=== PATIENT | male | born 1965 | race American Indian/Alaskan Native ===

== ENCOUNTER 2020-09-30 15:55 | Emergency (ER) | payer MEDICARE ==
[2020-09-30 16:11] VITALS: BP 177/104
--- NOTE | 2020-09-30 16:14 | Event Note ---
ED Screening Note Date of service: 09/30/20 Time: 16:13 ED Screening Note: Patient complains of diffuse chest pain shortness of breath after dropping a weight bar on his chest yesterday This initial assessment/diagnostic orders/clinical plan/treatment(s) is/are subject to change based on patients health status, clinical progression and re- assessment by fellow clinical providers in the ED. Further treatment and workup at subsequent clinical providers discretion. Patient/guardian urged not to elope from the ED as their condition may be serious if not clinically assessed and managed. Initial orders include: labs CT chest ekg
[2020-09-30 17:26] LABS: Basophils # (Auto) 0.1 K/mm3 (0.0-0.1); Eosinophils # (Auto) 0.1 K/mm3 (0.0-0.4); Eosinophils % (Auto) 1.2 % (0.0-4.3); Hematocrit 38.3 % (35.5-45.6); Hemoglobin 13.2 gm/dl (11.8-15.2); Lymphocytes # (Auto) 1.8 K/mm3 (1.2-5.4); Lymphocytes % (Auto) 32.9 % (13.4-35.0); Mean Corpuscular HGB Conc 35 % (32-34); Mean Corpuscular Volume 103 fl (84-94); Monocytes # (Auto) 0.6 K/mm3 (0.0-0.8); Monocytes % (Auto) 10.5 % (0.0-7.3); Platelet Count 266 K/mm3 (140-440); Red Blood Count 3.73 M/mm3 (3.65-5.03); Red Cell Distribution Width 14.1 % (13.2-15.2)
[2020-09-30 17:41] LABS: Alanine Aminotransferase 15 units/L (7-56); Albumin 4.4 g/dL (3.9-5); BUN/Creatinine Ratio 13; Blood Urea Nitrogen 21 mg/dL (9-20); Calcium 10.4 mg/dL (8.4-10.2); Hemolysis Index 5
--- NOTE | 2020-09-30 19:31 | Cat Scan Report ---
CT chest w con HISTORY: pain after dropping weight bar on chesr COMPARISON: None TECHNIQUE: Chest CT exam. All CT scans at this location are performed using CT dose reduction for ALA RA by means of automated exposure control. FINDINGS: CT CHEST: Lungs: No significant abnormality. Trachea and Bronchi: No significant abnormality. Mediastinum/Lymph nodes: No lymphadenopathy. Heart: No significant abnormality. Vasculature: No significant abnormality. Osseous Structures: No aggressive appearing osseous lesions. Additional Findings: Bilateral simple appearing renal cysts. IMPRESSION: 1. No acute traumatic abnormality. Signer Name: Antonio Rivas MD Signed: 09/30/2020 7:27 PM Workstation Name: [id number]
[2020-09-30] MEDS ORDERED: SODIUM CHLORIDE 0.9% 1000 ML 1,000 ML IV ONE (20:14)
--- NOTE | 2020-09-30 20:32 | Emergency Department Report ---
ED General Adult HPI - General Chief complaint: Chest Pain Stated complaint: BACK PAIN Time Seen by Provider: 09/30/20 16:12 Source: patient, EMS Mode of arrival: Ambulatory Limitations: No Limitations - History of Present Illness Initial comments: Patient is a 55 y/o male with hxo of HIV positive, GERD, CVA, depression, history of TB, & TIA patient presents for right anterior chest wall pain status post weight lifting incident on yesterday. Patient states intermittent shortness of breath there is no cough, fever, nausea vomiting, dizziness, or lig htheadedness. Symptoms are exacerbated by palpation and movement. Symptoms are relieved by nothing tried. Patient states adherence to all medication regimens. Patient states pain is 4/10 reproducible. There are no obvious abrasions lacerations there is no bleeding there is no chest wall deformity. PT labs and CT chest ordered in triage will evaluate same and dispel appropriately. Severity scale (0 -10): 9 - Related Data Home Medications Medication Instructions Recorded Confirmed Last Taken Ritonavir [Norvir] 1 tab PO DAILY 11/21/15 12/15/15 11/21/15 Truvada 200 mg PO DAILY 11/21/15 11/21/15 Aspirin [Adult Low Dose Aspirin EC] 81 mg PO DAILY 12/15/15 12/15/15 Unknown Atazanavir Sulfate [Reyataz] 300 mg PO QDAY 12/15/15 12/15/15 Unknown Metoprolol [Lopressor TAB] 25 mg PO DAILY 12/15/15 12/15/15 Unknown Previous Rx's Medication Instructions Recorded Last Taken Type Ibuprofen [Motrin 800 MG tab] 800 mg PO Q8HR PRN #30 tablet 11/21/15 Unknown Rx traMADoL [Ultram] 50 mg PO Q4HR PRN #20 tablet 11/21/15 Unknown Rx oxyCODONE /ACETAMINOPHEN [Percocet 1 tab PO Q6H PRN #20 tablet 12/15/15 Unknown Rx 5/325 mg] Famotidine [Pepcid] 20 mg PO BID #30 tablet 01/26/16 Unknown Rx Ketorolac [Toradol] 10 mg PO Q6H PRN #12 tablet 02/17/19 Unknown Rx Acetaminophen/Codeine [Tylenol 1 tab PO Q8H PRN #9 tab 09/30/20 Unknown Rx /Codeine # 3 tab] Allergies Allergy/AdvReac Type Severity Reaction Status Date / Time No Known Allergies Allergy Verified 12/15/15 15:18 ED Review of Systems ROS: Stated complaint: BACK PAIN Other details as noted in HPI Constitutional: denies: chills, fever Eyes: denies: eye pain, eye discharge, vision change ENT: denies: ear pain, throat pain Respiratory: shortness of breath Cardiovascular: chest pain (right anterior lateral chest wall pain ) Endocrine: no symptoms reported Gastrointestinal: denies: abdominal pain, nausea, vomiting, diarrhea Genitourinary: denies: urgency, dysuria, frequency, hematuria Musculoskeletal: denies: back pain, joint swelling, arthralgia Skin: denies: rash, lesions Neurological: denies: headache, weakness, paresthesias Psychiatric: denies: anxiety, depression Hematological/Lymphatic: denies: easy bleeding, easy bruising ED Past Medical Hx - Past Medical History Previous Medical History?: Yes Hx CVA: Yes Hx GERD: Yes Hx Psychiatric Treatment: Yes (bipolar) Hx Tuberculosis: Yes Hx HIV: Yes Additional medical history: TIA,elevated cholesterol. ARTIFICIAL RIGHT EYE - Surgical History Past Surgical History?: Yes Additional Surgical History: RIGHT EYE SURGERY. LEFT HIP REPLACEMENT, RIGHT HIP REPLACEMENT - Social History Smoking Status: Unknown if ever smoked Substance Use Type: Alcohol - Medications Home Medications: Home Medications Medication Instructions Recorded Confirmed Last Taken Type Ibuprofen [Motrin 800 MG tab] 800 mg PO Q8HR PRN #30 tablet 11/21/15 12/15/15 Unknown Rx Ritonavir [Norvir] 1 tab PO DAILY 11/21/15 12/15/15 11/21/15 History Truvada 200 mg PO DAILY 11/21/15 11/21/15 History traMADoL [Ultram] 50 mg PO Q4HR PRN #20 tablet 11/21/15 12/15/15 Unknown Rx Aspirin [Adult Low Dose Aspirin EC] 81 mg PO DAILY 12/15/15 12/15/15 Unknown History Atazanavir Sulfate [Reyataz] 300 mg PO QDAY 12/15/15 12/15/15 Unknown History Metoprolol [Lopressor TAB] 25 mg PO DAILY 12/15/15 12/15/15 Unknown History oxyCODONE /ACETAMINOPHEN [Percocet 1 tab PO Q6H PRN #20 tablet 12/15/15 Unknown Rx 5/325 mg] Famotidine [Pepcid] 20 mg PO BID #30 tablet 01/26/16 Unknown Rx Ketorolac [Toradol] 10 mg PO Q6H PRN #12 tablet 02/17/19 Unknown Rx Acetaminophen/Codeine [Tylenol 1 tab PO Q8H PRN #9 tab 09/30/20 Unknown Rx /Codeine # 3 tab] ED Physical Exam - General Limitations: No Limitations General appearance: alert, in no apparent distress - Head Head exam: Present: atraumatic, normocephalic - Eye Eye exam: Present: normal appearance, EOMI Pupils: Present: normal accommodation - ENT ENT exam: Present: normal exam, mucous membranes moist - Neck Neck exam: Present: normal inspection, full ROM. Absent: tenderness - Respiratory Respiratory exam: Present: normal lung sounds bilaterally, chest wall tenderness (right anterior lateral chest wall tenderness no bruising, no ecchymosis, no crepitus, no stepoff, no flail chest, lungs clear bilat , resp even nonlabored ). Absent: respiratory distress, wheezes, rales, rhonchi, stridor, accessory muscle use, prolonged expiratory - Cardiovascular Cardiovascular Exam: Present: regular rate, normal rhythm, normal heart sounds. Absent: systolic murmur, diastolic murmur, rubs, gallop - GI/Abdominal GI/Abdominal exam: Present: soft, normal bowel sounds. Absent: distended, tenderness, guarding, rebound, rigid, bruit, hernia - Rectal Rectal exam: Present: deferred - Extremities Exam Extremities exam: Present: normal inspection, full ROM, normal capillary refill. Absent: tenderness, pedal edema - Back Exam Back exam: Present: normal inspection, full ROM. Absent: tenderness, CVA tenderness (R), CVA tenderness (L) - Neurological Exam Neurological exam: Present: alert, oriented X3, CN II-XII intact, normal gait - Psychiatric Psychiatric exam: Present: normal affect, normal mood - Skin Skin exam: Present: warm, dry, intact, normal color. Absent: rash ED Course Vital Signs 09/30/20 16:07 Temperature 98.1 F Pulse Rate 90 Respiratory 18 Rate Blood Pressure 177/104 [Right] O2 Sat by Pulse 100 Oximetry ED Medical Decision Making - Lab Data Result diagrams: 09/30/20 16:46 09/30/20 16:46 - EKG Data EKG shows normal: sinus rhythm, axis, intervals, QRS complexes, ST-T waves Rate: normal - EKG Data When compared to previous EKG there are: no significant change Interpretation: normal EKG (EKG NSR no ST Elevated LA ekg interp by ED attending) - Radiology Data Radiology results: report reviewed, image reviewed Findings Reporting MD: Antonio Rivas Dictation Time: September 30, 2020 18:27 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 All CT scans at this location are performed using CT dose reduction for ALARA by means of automated exposure control. FINDINGS: CT CHEST: Lungs: No significant abnormality. Trachea and Bronchi: No signif icant abnormality. Mediastinum/Lymph nodes: No lymphadenopathy. Heart: No significant abnormality. Vasculature: No significant abnormality. Osseous Structures: No aggressive appearing osseous lesions. Additional Findings: Bilateral simple appearing renal cysts. IMPRESSION: 1. No acute traumatic abnormality. Signer Name: Antonio Rivas MD Signed: 09/30/2020 6:27 PM Workstation Name: [id number] - Medical Decision Making CT chest is normal no opacities no infiltrate, vital signs noted stable. Patient denies chest pain or nausea vomiting at this time, heart score 0, EKG normal sinus rhythm no ST elevated LA. No change from previous EKG. EKG interpreted by ED attending. Noted elevated creatinine. Patient does decline IV fluids or UA at this time. States no problems voiding. Requesting pain medication for chest wall , will DC to home with Tylenol products. Patient will follow-up with his primary care doctor tomorrow. Patient verbalizes agreement and understanding with discharge plan. Patient will be DC'd home in stable condition at this time. Critical care attestation.: If time is entered above; I have spent that time in minutes in the direct care of this critically ill patient, excluding procedure time. ED Disposition Clinical Impression: Chest wall pain Disposition: DC-01 TO HOME OR SELFCARE Is pt being admited?: No Does the pt Need Aspirin: No Condition: Stable Instructions: Chest Pain (ED), Chest Wall Pain Prescriptions: Acetaminophen/Codeine [Tylenol /Codeine # 3 tab] 1 tab PO Q8H PRN #9 tab PRN Reason: pain Referrals: DENISE RIVERA JR, MD [Primary Care Provider] - 3-5 Days Time of Disposition: 21:04
[2020-09-30] MEDS ORDERED: ACETAMINOPHEN W/CODEINE 300-30 MG TAB PO ONE (21:03)
== END 2020-09-30 21:15 | disposition home or self-care (01) ==
LOC: ED 15:55
DX: R07.89 Other chest pain (principal); R06.02 Shortness of breath; K21.9 Gastro-esophageal reflux disease without esophagitis; F31.9 Bipolar disorder, unspecified; Z21 Asymptomatic human immunodeficiency virus [HIV] infection status; Z86.11 Personal history of tuberculosis; Z98.890 Other specified postprocedural states; Z79.1 Long term (current) use of non-steroidal anti-inflammatories (NSAID); Z79.899 Other long term (current) drug therapy
CPT/HCPCS: 36415; 71260; 80053; 84484; 85025; 93005; 99284; Q9967